=== PATIENT | female | born 1970 | race Caucasian/White ===

== ENCOUNTER 2021-03-20 14:50 | Emergency (ER) | payer MEDICAID ==
[~2021-03-20] VITALS: Ht 160 cm; Wt 63.5 kg
[2021-03-20 14:50] VITALS: BP_SYST 143
[2021-03-20] MEDS ORDERED: IBUPROFEN 600 MG TABLET PO ONE (16:00)
[2021-03-20 16:10] VITALS: BP_SYST 138
== END 2021-03-20 16:12 ==
LOC: SED 14:50
DX: R10.32 Left lower quadrant pain (principal); F12.90 Cannabis use, unspecified, uncomplicated
CPT/HCPCS: 99283